=== PATIENT | female | born 1990 | race Caucasian/White ===

== ENCOUNTER 2018-03-04 19:58 | Emergency (ER) | payer OTHER, SELFPAY ==
[2018-03-04 20:01] VITALS: BP 140/93; PULSE 79; RESP 16; TEMP 36.9; O2SAT 100; BMI 21.9
--- NOTE | 2018-03-04 20:29 | ED.ANIMALBIT ---
HPI - Animal Bite <Telma Blanchard PA-C - Last Filed: 03/04/18 22:10> General Chief Complaint: Animal Bite Stated Complaint: cat bite left bite,swelling,pain Time Seen by Provider: 03/04/18 20:29 Source: patient Mode of arrival: ambulatory Limitations: no limitations History of Present Illness HPI narrative: This 28-year-old female was bit gently ?love bites? by her own cat yesterday morning. She states that she felt the canine tooth go into her thumb, washed it thoroughly and thought it was okay, however she began to have pain within the next couple of hours along with swelling. She states that pain is actually significantly better today. She has a little trouble fully bending the thumb due to the swelling, which has persisted today along with some redness so she thought she should have this checked. This is her senior CT, up-to-date on vaccines, indoors with no illnesses. She has not noted any streaking or redness elsewhere. She has not had fever, no other new symptoms with this. She denies any possibility of stating she is reliable with oral contraceptive as well as backup contraceptive. Related Data Home Medications Medication Instructions Recorded Confirmed tizanidine 8 mg PO HS #0 03/11/16 Previous Rx's Medication Instructions Recorded L norgest/e.estradiol-e.estrad 1 tab PO QDAY #30 pac 03/11/16 [Seasonique] progesterone micronized 100 mg PO QDAY #7 cap 10/11/16 norethindrone-ethin estradiol 1 tab PO QDAY #3 pac 02/07/18 [Ortho-Novum (28)] doxycycline monohydrate 100 mg PO BID #20 cap 03/04/18 Allergies Allergy/AdvReac Type Severity Reaction Status Date / Time Penicillins [PENICILLINS] Allergy Mild Rash Verified 03/04/18 20:05 Review of Systems <Telma Blanchard PA-C - Last Filed: 03/04/18 22:10> Review of Systems All systems reviewed & are unremarkable except as noted in HPI and below PFSH <STACIE Chowdary Last Filed: 03/04/18 22:10> Comment: No tobacco, no ETOH or street drugs Exam <Telma Blanchard PA-C - Last Filed: 03/04/18 22:10> Narrative Exam Narrative: GENERAL APPEARANCE: Patient sitting comfortably, in no distress. LUNGS: Clear to auscultation bilaterally. HEART: Rate and rhythm regular without murmur, normal S1 and S2, no S3 or S4. DERMATOLOGIC: Right thumb pad there is a small puncture wound with in a barely raised white/opaque papule, nonfluctuant. Surrounding skin is erythematous, slightly warm, not fluctuant, minimally tender, non circumferential (limited to thumb pad, margins outlined) MUSCULOSKELETAL: Slightly reduced flexion of the right thumb at the IP joint without tenderness, normal at the MCP joint. Strength is intact against resistance. NEUROVASCULAR: Right hand and fingers sensation is grossly intact, warm and pink Initial Vital Signs Initial Vital Signs: Vital Signs Temperature 98.4 F 03/04/18 20:01 Pulse Rate 79 03/04/18 20:01 Respiratory Rate 16 03/04/18 20:01 Blood Pressure 140/93 H 03/04/18 20:01 Pulse Oximetry 100 03/04/18 20:01 <Mg Morgan MD - Last Filed: 03/04/18 23:50> Initial Vital Signs Initial Vital Signs: Vital Signs Temperature 98.4 F 03/04/18 20:01 Pulse Rate 79 03/04/18 20:01 Respiratory Rate 16 03/04/18 20:01 Blood Pressure 140/93 H 03/04/18 20:01 Pulse Oximetry 100 03/04/18 20:01 Course <Telma Blanchard PA-C - Last Filed: 03/04/18 22:10> Orders Ordered: Discontinued Medications Doxycycline Hyclate (Vibramycin) 100 mg PO NOW ONE Stop: 03/04/18 20:45 Last Admin: 03/04/18 20:52 Dose: 100 mg Vital Signs - 8 hr 03/04/18 20:01 03/04/18 21:06 Temperature 98.4 F Pulse Rate 79 75 Respiratory Rate 16 16 Blood Pressure 140/93 H Blood Pressure [Left Arm] 135/86 H Pulse Oximetry 100 100 <Mg Morgan MD - Last Filed: 03/04/18 23:50> Orders Ordered: Discontinued Medications Doxycycline Hyclate (Vibramycin) 100 mg PO NOW ONE Stop: 03/04/18 20:45 Last Admin: 03/04/18 20:52 Dose: 100 mg Vital Signs - 8 hr 08/05/18 20:01 03/04/18 21:06 Temperature 98.4 F Pulse Rate 79 75 Respiratory Rate 16 16 Blood Pressure 140/93 H Blood Pressure [Left Arm] 135/86 H Pulse Oximetry 100 100 Discharge Plan Departure Patient Disposition: Home, Self-Care Clinical Impression: Cat bite of right thumb with infection Discharge Date/Time: 03/04/18 21:18 Interventions: ED Discharge Assessment Last Done: 03/04/18 21:17 Instructions: DI for Cellulitis -- Adult, DI for Cat Bite Activity Restrictions/Additional Instructions: You have received the [facility] dose [facility] I have sent a prescription for the remainder to [facility] in [place]. Please medicinal plant picker your 2nd dose 1st thing in the morning and continue the antibiotic. You should return as we talked about if any acutely worsening symptoms such as more difficulty with movement, pain, or streaking. Also return if new symptoms such as fever. Otherwise, it is likely to take 2-3 days to start seeing the effect of the antibiotic. Please planned to follow up with your PCP in a few days for recheck. You can take ibuprofen or Aleve to help with pain and swelling. Prescriptions: New doxycycline monohydrate 100 mg capsule 100 mg PO BID Qty: 20 RF: 0 No Action tizanidine 4 MG tablet 8 mg PO HS Qty: 0 RF: 0 L norgest/e.estradiol-e.estrad [Seasonique] 1 EACH tablets,dose pack,3 month 1 tab PO QDAY Qty: 30 RF: 3 progesterone micronized 100 MG capsule 100 mg PO QDAY Qty: 7 RF: 0 norethindrone-ethin estradiol [Ortho-Novum ()] 1-35 mg-mcg tablet 1 tab PO QDAY Qty: 3 RF: 0 Referrals: Jairo Ornelas MD [Primary Care Provider] - <Mg Morgan MD - Last Filed: 03/04/18 23:50> Cosign ED Attending Cosignature Attestation: I was available in ER for verbal consultation or to physically see the patient if need be. I agree with the evaluation and treatment plan.
[2018-03-04] MEDS: DOXYCYCLINE HYCLATE 100 MG TABLET PO (20:52)
[2018-03-04 21:06] VITALS: BP 135/86; PULSE 75; RESP 16; O2SAT 100
== END 2018-03-04 21:18 | disposition home or self-care (01) ==
PROVIDERS: Emergency Provider Internal Medicine; Family Provider Family Medicine; PCP Family Medicine
DX: S61.051A Open bite of right thumb without damage to nail, initial encounter (principal); L08.9 Local infection of the skin and subcutaneous tissue, unspecified; W55.01XA Bitten by cat, initial encounter
CPT/HCPCS: 99282; 99283

== ENCOUNTER → 2018-11-09 13:45 | Outpatient (CLI) | payer OTHER, SELFPAY ==
--- NOTE | 2018-11-09 13:47 | DI.RAD.S_ITS ---
PROCEDURE: XR HAND RT MIN 3V INDICATIONS: right hand/wrist injury TECHNIQUE: 3 views of the hand(s) acquired. COMPARISON: None. FINDINGS: Bones: No fractures or dislocations. Carpal bones are normally aligned. No suspicious bony lesions. Soft tissues: No suspicious soft tissue calcifications. IMPRESSION: No fracture. If the patient's symptoms do not improve recommend followup radiographs in 10 days to assess for healing sclerosis/occult injury. Dictated by: Everett Daniel M.D. on 11/09/2018 at 16:03 Approved by: Everett Daniel M.D. on 11/09/2018 at 16:05
--- NOTE | 2018-11-09 13:47 | DI.RAD.S_ITS ---
PROCEDURE: XR WRIST RT MIN 3V INDICATIONS: right hand/wrist injury TECHNIQUE: 4 views of the wrist were acquired. COMPARISON: [facility], , WRIST MINIMUM 3 VIEWS LEFT, 06/15/2016, 18:10. FINDINGS: Bones: No fractures or dislocations. No suspicious bony lesions. Scaphoid view: No fracture Soft tissues: No suspicious soft tissue calcifications. IMPRESSION: No fracture. If the patient's symptoms do not improve recommend followup radiographs in 10 days to assess for healing sclerosis/occult injury. Dictated by: Everett Daniel M.D. on 11/09/2018 at 15:19 Approved by: Everett Daniel M.D. on 11/09/2018 at 15:20
== END ==
PROVIDERS: PCP Family Medicine; Visit Provider Family Medicine
DX: M79.641 Pain in right hand (principal); M25.531 Pain in right wrist; S69.91XA Unspecified injury of right wrist, hand and finger(s), initial encounter
CPT/HCPCS: 73110; 73130

== ENCOUNTER → 2020-05-10 11:23 | Outpatient (CLI) | payer OTHER, SELFPAY ==
[2020-05-11 14:49] LABS: COVID19 Sendout Not Detected (Not Detect)
== END ==
PROVIDERS: PCP Family Medicine; Visit Provider Physician Assistant
DX: Z11.59 Encounter for screening for other viral diseases (principal)
CPT/HCPCS: 87635

== ENCOUNTER 2022-04-26 12:19 | Emergency (ER) | payer OTHER, SELFPAY ==
[2022-04-26 12:33] VITALS: BP 158/98; PULSE 71; RESP 18; TEMP 36.9; O2SAT 100; BMI 23.5
[2022-04-26] MEDS: PROPARACAINE 0.5% OPHTH SOL 1 DROPS EYE-LEFT (12:39)
[2022-04-26] MEDS: FLUORESCEIN 1 MG STRIP EYE-LEFT (14:01)
--- NOTE | 2022-04-26 15:08 | ED.EYEPROB ---
HPI - Eye Problem <Christian Palafox PA-C - Last Filed: 04/26/22 15:13> General Chief complaint: Eye Problems Stated complaint: Something in left eye Time Seen by Provider: 04/26/22 14:06 History of Present Illness HPI Narrative: 32-year-old female with no reported past medical history presents to the ED with some eye irritation that started early this morning. Patient states that upon awakening, she felt something fly into her left eye, she endorses rubbing that eye a lot due to the irritation. Patient endorses a foreign body sensation in that eye, swelling, redness, tearing. Patient denies any visual changes. Patient denies pain inside the eye, pain with extraocular movements. Related Data Home Medications Medication Instructions Recorded Confirmed tizanidine 4 mg tablet 8 mg PO HS ##0 03/11/16 12/30/21 tramadol 50 mg tablet 50 mg PO DAILY PRN pain 11/09/18 12/30/21 gabapentin 300 mg capsule See Rx Instructions PO BID 04/16/19 12/30/21 Previous Rx's Medication Instructions Recorded norethindrone 1 mg-ethinyl 1 tab PO QDAY #168 tabs 12/30/21 estradiol 35 mcg tablet azithromycin 250 mg tablet See Rx Instructions PO .COMPLEX #6 04/30/22 tabs fluticasone propionate 50 1 spray intranasal BID #16 grams 04/30/22 mcg/actuation nasal spray,suspension (Allergy Relief (fluticasone)) Allergies Allergy/AdvReac Type Severity Reaction Status Date / Time Penicillins [PENICILLINS] Allergy Mild Rash Verified 04/30/22 13:48 Review of Systems <Christian Palafox PA-C - Last Filed: 04/26/22 15:13> Review of Systems ROS Unobtainable: All systems reviewed & are unremarkable except as noted in HPI and below Constitutional Constitutional: Denies chills, Denies fatigue, Denies fever(s), Denies frequent falls, Denies lethargy and Denies weakness Eyes Eyes: Denies change in vision, Denies eye discharge, Reports irritation, Denies loss of vision and Reports photophobia ENT Ears, Nose, Mouth, and Throat: Denies change in voice, Denies dizziness, Denies neck pain, Denies sore throat and Denies throat swelling Cardiovascular Cardiovascular: Denies chest pain, Denies irregular heart rhythm, Denies lightheadedness, Denies palpitations, Denies dyspnea, Denies dyspnea on exertion and Denies orthopnea Respiratory Respiratory: Denies cough, Denies dyspnea, Denies dyspnea on exertion and Denies wheezing Gastrointestinal Gastrointestinal: Denies abdominal pain, Denies change in bowel habits, Denies diarrhea, Denies nausea and Denies vomiting Genitourinary Genitourinary: Denies hematuria, Denies flank pain, Denies urinary incontinence and Denies urinary urgency Musculoskeletal Musculoskeletal: Denies back pain, Denies muscle weakness, Denies neck pain, Denies numbness and Denies tingling Integumentary/Breasts Skin/Breast: Denies pruritus, Denies erythema, Denies rash and Denies wounds Neurologic Neurologic: Denies behavioral changes, Denies confusion, Denies dizziness, Denies frequent falls, Denies loss of vision, Denies numbness, Denies tingling and Denies weakness Psychiatric Psychiatric: Denies anxiety, Denies behavioral changes, Denies confusion, Denies depression, Denies homicidal ideation and Denies suicidal ideation Endocrine Endocrine: Denies fatigue, Denies flushing and Denies palpitations Hematologic/Lymphatic Hematologic/Lymphatic: Denies easy bruising Allergic/Immunologic Allergic/Immunologic: Denies urticaria, Denies throat swelling and Denies wheezing Patient History <Christian Palafox PA-C - Last Filed: 04/26/22 15:13> Medical History control counseling Dog bite of left wrist Fibromyalgia, primary Healthy female adult Family History Father Age: 53 Hypertension Mother Stroke Social History marital status: Smoking Status: Never smoker alcohol intake: never substance use type: does not use Smoking Status: Never smoker alcohol intake frequency: 0-2 drinks per day Substance Use Type: does not use Exam <Christian Palafox PA-C - Last Filed: 04/26/22 15:13> Narrative Exam Narrative: Const General:?cooperative, healthy appearing and comfortable HENMT Head:?normal to inspection Ears:?hearing grossly normal bilaterally Nose:?external nose normal Face and sinus:?normal facial exam and sinuses nontender Mouth:?oral mucosae normal Throat:?posterior oropharynx normal Eyes General:? Right eye is normal; left eye with conjunctival injection, tearing, irritated; no foreign objects visualized on eye exam on eversion of upper or lower lids; no corneal abrasion visualized on fluorescein exam; there is a conjunctival abrasion identified on the left upper corner of the left conjunctiva. Vision is grossly normal. Patient's eye irritation symptom improved with proparcaine Neck Neck:?normal visual inspection and no lymphadenopathy noted Resp Effort & Inspection:?normal respiratory effort Auscultation:?clear to auscultation bilaterally Cardio Rate:?regular rate Rhythm:?regular rhythm Neuro General:?patient alert, patient awake and patient oriented x3 Initial Vital Signs Initial Vital Signs: Vital Signs Temperature 98.4 F 04/26/22 12:33 Pulse Rate 71 04/26/22 12:33 Respiratory Rate 18 04/26/22 12:33 Blood Pressure 158/98 H 04/26/22 12:33 Pulse Oximetry 100 04/26/22 12:33 Oxygen Delivery Method 04/26/22 12:33 <Magda Perez DO - Last Filed: 05/02/22 19:47> Initial Vital Signs Initial Vital Signs: Vital Signs Temperature 98.4 F 04/26/22 12:33 Pulse Rate 71 04/26/22 12:33 Respiratory Rate 18 04/26/22 12:33 Blood Pressure 158/98 H 04/26/22 12:33 Pulse Oximetry 100 04/26/22 12:33 Oxygen Delivery Method 04/26/22 12:33 Course <Christian Palafox PA-C - Last Filed: 04/26/22 15:13> Orders Ordered: Discontinued Medications Fluorescein Sodium (Fluorescein 1 Mg Strip) 1 mg EYE-LEFT NOW ONE Stop: 04/26/22 12:38 Last Admin: 04/26/22 14:01 Dose: 1 mg Documented By: BS Proparacaine HCl (Proparacaine 0.5% Ophth Cookie) 1 drops EYE-LEFT NOW ONE Stop: 04/26/22 12:38 Last Admin: 04/26/22 12:39 Dose: 1 drop Documented By: CTS Vital Signs Vital signs: Vital Signs - 8 hr 04/26/22 12:33 Temperature 98.4 F Pulse Rate 71 Respiratory Rate 18 Blood Pressure 158/98 H Pulse Oximetry 100 Oxygen Delivery Method Room Air <Magda Perez DO - Last Filed: 05/02/22 19:47> Orders Ordered: Discontinued Medications Fluorescein Sodium (Fluorescein 1 Mg Strip) 1 mg EYE-LEFT NOW ONE Stop: 04/26/22 12:38 Last Admin: 04/26/22 14:01 Dose: 1 mg Documented By: MIREYA Proparacaine HCl (Proparacaine 0.5% Ophth Cookie) 1 drops EYE-LEFT NOW ONE Stop: 04/26/22 12:38 Last Admin: 04/26/22 12:39 Dose: 1 drop Documented By: CTS Vital Signs Vital signs: Vital Signs - 8 hr 04/26/22 12:33 Temperature 98.4 F Pulse Rate 71 Respiratory Rate 18 Blood Pressure 158/98 H Pulse Oximetry 100 Oxygen Delivery Method Room Air MDM - Eye Problem <Christian Palafox PA-C - Last Filed: 04/26/22 15:13> MDM Narrative Medical decision making narrative: 32-year-old female with no reported past medical history presents to the ED with some eye irritation that started early this morning. No foreign object visualized on physical exam, no corneal abrasions on fluorescein exam. There was a conjunctival abrasion to the upper left corner of the conjunctiva. Will treat with erythromycin ophthalmic ointment, ketorolac optical drops for analgesia. Patient agrees to follow-up with ophthalmology if symptoms do not improve in the next 2 days. ED return precautions discussed with patient. Patient verbalized understanding. Discharge Plan Departure Patient Disposition: Home Clinical Impression: Abrasion of conjunctiva Instructions: DI for Corneal Abrasion Activity Restrictions/Additional Instructions: You were evaluated in the ED today for an eye injury. No foreign up foreign objects identified in your eye. The physical exam does show a conjunctival abrasion, possibly caused by a foreign body and rubbing your eye. You have been prescribed erythromycin antibiotic ointment, ketorolac drops for pain. Please follow-up with an fire inspector if your symptoms do not improve in the next 2 days. If you have any changes in vision or bruno inside the eye, please return to the ED. Prescriptions: No Action norethindrone-ethin estradiol 1-35 mg-mcg tablet 1 tab PO QDAY Qty: 168 3RF azithromycin 250 mg tablet See Rx Instructions PO .COMPLEX Qty: 6 0RF Rx Instructions: For 250 mg dose pack: take 500 mg today (day 1), then 250 mg for 4 days (days 2-5) PO fluticasone propionate [Allergy Relief (fluticasone)] 50 mcg/actuation spray,suspension 1 spray intranasal BID Qty: 16 0RF Rx Instructions: administer into each nostril gabapentin 300 mg capsule See Rx Instructions PO BID Rx Instructions: 300 mg in the am and 600 mg at bedtime. tizanidine 4 MG tablet 8 mg PO HS Qty: 0 tramadol 50 mg tablet 50 mg PO DAILY PRN (Reason: pain) Referrals: Jairo Ornelas MD [Primary Care Provider] - Visit Report Forms: Patient Portal/API <Magda Perez DO - Last Filed: 05/02/22 19:47> Cosign ED Attending Cosignature Attestation: I was immediately available in the department for consultation. Documentation has been reviewed. I agree with assessment and plan.
== END 2022-04-26 15:09 | disposition home or self-care (01) ==
PROVIDERS: Emergency Provider Student in an Organized Health Care Education/Training Program; PCP Family Medicine
DX: S05.02XA Injury of conjunctiva and corneal abrasion without foreign body, left eye, initial encounter (principal); X58.XXXA Exposure to other specified factors, initial encounter
CPT/HCPCS: 99282